=== PATIENT | female | born 1975 | race Caucasian/White ===

== ENCOUNTER 2017-05-09 05:02 | Observation (INO) | payer MEDICAID ==
[~2017-05-09] VITALS: Ht 154.9 cm; Wt 89.0 kg
[~2017-05-09 05:02] MED LIST: PREN1TAB60 PO
[2017-05-09 05:25] LABS: DAU SCREEN DISCLAIMER
[2017-05-09] MEDS ORDERED: ONDANSETRON 2MG/ML, 2ML ONE ×2 (05:56→12:35)
[2017-05-09] MEDS: ONDANSETRON 2MG/ML, 2ML IVPush PRN ×2 (05:59→12:37)
[2017-05-09] MEDS ORDERED: LACTATED RINGERS 1,000 ML IVBOLUS ONE (06:00)
[2017-05-09 06:30] LABS: BLOOD UREA NITROGEN 8 mg/dL (7-18)
[2017-05-09] MEDS: D5%-LACTATED RINGERS 1,000 ML IV SCH ×2 (06:40→12:00)
[2017-05-09] MEDS ORDERED: DIPHENHYDRAMINE 50 MG/ML, 1ML ONE (06:50)
[2017-05-09] MEDS ORDERED: DIPHENHYDRAMINE 50 MG/ML, 1ML IVPush ONE (07:00)
[2017-05-09] MEDS: POTASSIUM CHLORIDE 40 MEQ in LACTATED RINGERS 1,000 ML IV SCH ×2 (07:16→11:05)
[2017-05-09] MEDS ORDERED: FENTANYL PF 100 MCG/2ML ONE (10:18)
[2017-05-09] MEDS ORDERED: FENTANYL PF 100 MCG/2ML IVPush PRN (10:30)
[2017-05-09 10:59] LABS: ASPARTATE AMINO TRANSFERASE 29 U/L (15-37); BLOOD UREA NITROGEN 6 mg/dL (7-18)
[2017-05-09] MEDS ORDERED: POTASSIUM CHLORIDE 40 MEQ in LACTATED RINGERS 1,000 ML IV ONE (11:44)
[2017-05-09] MEDS ORDERED: PROMETHAZINE 25 MG/ML, 1ML IM ONE (15:30)
[2017-05-09 15:56] LABS: BLOOD UREA NITROGEN 5 mg/dL (7-18)
[2017-05-09 16:00] LABS: ASPARTATE AMINO TRANSFERASE 30 U/L (15-37)
[2017-05-09] MEDS ORDERED: CALCIUM CARBONATE 500 MG TAB.CHEW ONE (17:46)
[2017-05-09] MEDS ORDERED: HYDROcodone/APAP 10/325 MG TABLET PO PRN (18:00)
[2017-05-09] MEDS ORDERED: CALCIUM CARBONATE 500 MG TAB.CHEW PO PRN (18:00)
== END 2017-05-09 18:05 | disposition home or self-care (01) ==
LOC: LDOP 05:02 → LDIP 07:00
PROVIDERS: ADMIT Obstetrics & Gynecology; ATTEND Obstetrics & Gynecology
DX: O21.2 Late vomiting of pregnancy (principal); O99.283 Endocrine, nutritional and metabolic diseases complicating pregnancy, third trimester; E86.0 Dehydration; E87.6 Hypokalemia; O99.323 Drug use complicating pregnancy, third trimester; F12.90 Cannabis use, unspecified, uncomplicated; O99.513 Diseases of the respiratory system complicating pregnancy, third trimester; J45.909 Unspecified asthma, uncomplicated; O99.353 Diseases of the nervous system complicating pregnancy, third trimester; G47.33 Obstructive sleep apnea (adult) (pediatric); Z3A.36 36 weeks gestation of pregnancy
CPT/HCPCS: 36415; 59025; 80048; 80053; 80307; 81001; 82009; 85025; 87081; 87086; 96361; 96365; 96366; 96372; 96375; 96376; G0378; J1200; J2405; J2550; J3010; J3480; J7120; 96360; 96374; 99201; G0463; J7121

== ENCOUNTER 2017-05-11 16:19 | Inpatient (IN) | payer MEDICAID ==
[~2017-05-11] VITALS: Ht 154.9 cm; Wt 90.0 kg
[2017-05-11 16:50] LABS: DAU SCREEN DISCLAIMER
[2017-05-11] MEDS ORDERED: ONDANSETRON 2MG/ML, 2ML ONE (17:09)
[2017-05-11] MEDS ORDERED: PROMETHAZINE 25 MG/ML, 1ML ONE (17:09)
[2017-05-11 17:28] LABS: ASPARTATE AMINO TRANSFERASE 146 U/L (15-37); BLOOD UREA NITROGEN 3 mg/dL (7-18)
[2017-05-11] MEDS ORDERED: LACTATED RINGERS 1,000 ML IVBOLUS ONE (17:30)
[2017-05-11] MEDS ORDERED: ONDANSETRON 2MG/ML, 2ML IVPush ONE (17:30)
[2017-05-11] MEDS ORDERED: PROMETHAZINE 25 MG/ML, 1ML IM ONE (17:30)
[2017-05-11 17:37] LABS: DIFF TOTAL CELLS COUNTED 100 CELL DIFF
[2017-05-11 17:38] LABS: VERIFY COUNTS? YES
[2017-05-11 17:44] VITALS: BP 150/76
[2017-05-11] MEDS ORDERED: FAMOTIDINE 20 MG/2 ML IVPush ONE (18:00)
[2017-05-11] MEDS ORDERED: DIPH25TA65 PO (18:23)
[2017-05-11] MEDS ORDERED: ONDA4TAB10 PO (18:23)
[2017-05-11] MEDS ORDERED: PROM25TA10 PO (18:29)
[2017-05-11] MEDS ORDERED: ALBU18HF INH (18:30)
[2017-05-11] MEDS ORDERED: FAMOTIDINE 20 MG/2 ML ONE (18:40)
[2017-05-11] MEDS ORDERED: MAALOX/HYOSCYAMINE/LIDOCAINE 45 ML BTL PO ONE (19:30)
[2017-05-11] MEDS: NS + 40MEQ KCL 1,000 ML IV SCH (20:09)
[2017-05-11] MEDS ORDERED: hydrOXyzine 50MG TABLET PO ONE (20:30)
[2017-05-11] MEDS ORDERED: OXYTOCIN 30U/ 0.9% NaCL 500ML 500 ML ONE (23:27)
[2017-05-11] MEDS ORDERED: MISOPROSTOL 25 MCG TABLET ONE (23:27)
[2017-05-12] MEDS ORDERED: OXYTOCIN 30U/ 0.9% NaCL 500ML 500 ML IV PRN ×2 (00:01→13:28)
[2017-05-12] MEDS ORDERED: OXYTOCIN 30U/ 0.9% NaCL 500ML 500 ML IV ONE (00:01)
[2017-05-12] MEDS ORDERED: LACTATED RINGERS 1,000 ML IV SCH ×2 (00:01→07:25)
[2017-05-12] MEDS ORDERED: D5%-LACTATED RINGERS 1,000 ML IV SCH (00:01)
[2017-05-12] MEDS ORDERED: TERBUTALINE 1 MG/ML, 1ML IVPush PRN (00:30)
[2017-05-12] MEDS ORDERED: MISOPROSTOL 25 MCG TABLET VG PRN (00:30)
[2017-05-12] MEDS ORDERED: CALCIUM CARBONATE 500 MG TAB.CHEW PO PRN ×2 (00:30→21:30)
[2017-05-12] MEDS ORDERED: FENTANYL PF 100 MCG/2ML IV PRN (00:30)
[2017-05-12] MEDS ORDERED: ONDANSETRON 2MG/ML, 2ML IVPush PRN (00:30)
[2017-05-12] MEDS ORDERED: FENTANYL/BUPIV./NS/PF 250 ML EPIDCONT ONE ×2 (01:41→14:51)
[2017-05-12] MEDS ORDERED: LIDOCAINE/PF 1.5%-EPI 1:200K, 30ML ONE (01:41)
[2017-05-12] MEDS ORDERED: NEWBORN KIT ONE (03:18)
[2017-05-12] MEDS ORDERED: ONDANSETRON 2MG/ML, 2ML ONE (06:35)
[2017-05-12] MEDS ORDERED: FENTANYL/BUPIV./NS/PF 250 ML EPIDCONT SCH (07:25)
[2017-05-12] MEDS ORDERED: LACTATED RINGERS 1,000 ML IVBOLUS PRN (07:30)
[2017-05-12] MEDS ORDERED: NALOXONE 0.4 MG/ML, 1ML IVPush PRN (07:30)
[2017-05-12] MEDS ORDERED: EPHEDRINE 50 MG/ML, 1ML IVPush PRN (07:30)
[2017-05-12] MEDS: NS + 40MEQ KCL 1,000 ML IV SCH (09:00)
[2017-05-12] MEDS ORDERED: BUPIVACAINE 0.25% ONE (09:49)
[2017-05-12] MEDS ORDERED: FENTANYL PF 100 MCG/2ML ONE ×4 (11:43→21:09)
[2017-05-12] MEDS ORDERED: AMPICILLIN 2 GM in SODIUM CHLORIDE 0.9% 100 ML IVPB STA (13:30)
[2017-05-12] MEDS ORDERED: ACETAMINOPHEN 325 MG TABLET ONE (14:36)
[2017-05-12] MEDS ORDERED: MISOPROSTOL 200 MCG TABLET ONE (14:36)
[2017-05-12] MEDS ORDERED: LIDOCAINE 1%, 20ML ONE ×2 (14:36→20:26)
[2017-05-12] MEDS: ACETAMINOPHEN 325 MG TABLET PO PRN (14:38)
[2017-05-12 16:50] LABS: ASPARTATE AMINO TRANSFERASE 96 U/L (15-37); BLOOD UREA NITROGEN 5 mg/dL (7-18)
[2017-05-12] MEDS ORDERED: AMPICILLIN 1 GM in SODIUM CHLORIDE 0.9% 50 ML IVPB SCH (17:30)
[2017-05-12] MEDS ORDERED: MAGNESIUM SULF. PMX 20GM/500ML 500 ML IV SCH (18:47)
[2017-05-12] MEDS ORDERED: MAGNESIUM SULF. PMX 20GM/500ML 500 ML IV ONE (18:51)
[2017-05-12] MEDS ORDERED: MAGNESIUM SULFATE PMX 4GM/100M 100 ML IVPB ONE (19:00)
[2017-05-12] MEDS: FENTANYL PF 100 MCG/2ML IVPush PRN ×2 (20:18→21:05)
[2017-05-12] MEDS ORDERED: OXYTOCIN 30U/ 0.9% NaCL 500ML 500 ML IV SCH (21:28)
[2017-05-12] MEDS ORDERED: MAGNESIUM SULF. PMX 20GM/500ML 500 ML IV PRN (21:28)
[2017-05-12] MEDS ORDERED: DOCUSATE 100 MG CAPSULE PO PRN (21:30)
[2017-05-12] MEDS ORDERED: MISOPROSTOL 200 MCG TABLET PR PRN (21:30)
[2017-05-12] MEDS ORDERED: HYDROcodone/APAP 5/325 TABLET PO PRN (21:30)
[2017-05-12] MEDS ORDERED: OXYTOCIN 30U/ 0.9% NaCL 500ML 500 ML ONE (21:33)
[2017-05-13] MEDS ORDERED: IBUPROFEN 600 MG TABLET ONE (01:42)
[2017-05-13] MEDS ORDERED: ACETAMINOPHEN 325 MG TABLET ONE ×5 (01:49→22:57)
[2017-05-13] MEDS: ACETAMINOPHEN 325 MG TABLET PO PRN ×5 (01:52→23:00)
[2017-05-13] MEDS ORDERED: OXYTOCIN 30U/ 0.9% NaCL 500ML 500 ML ONE (03:03)
[2017-05-13] MEDS ORDERED: MAGNESIUM SULF. PMX 20GM/500ML 500 ML IV ONE ×2 (03:03→13:19)
[2017-05-13] MEDS: MAGNESIUM SULF. PMX 20GM/500ML 500 ML IV SCH ×2 (03:12→13:24)
[2017-05-13 07:10] VITALS: BP 152/103
[2017-05-13 07:24] LABS: ASPARTATE AMINO TRANSFERASE 71 U/L (15-37); BLOOD UREA NITROGEN 5 mg/dL (7-18)
[2017-05-13 07:45] VITALS: BP 156/96
[2017-05-13] MEDS ORDERED: ONDANSETRON 2MG/ML, 2ML ONE ×2 (08:14→16:09)
[2017-05-13] MEDS: ONDANSETRON 2MG/ML, 2ML IV PRN ×2 (08:18→16:11)
[2017-05-13 08:38] VITALS: BP_SYST 144; BP_SYST 156; BP_DIAS 96; BP_DIAS 97
[2017-05-13] MEDS ORDERED: FAMOTIDINE 20 MG TABLET PO ONE (08:40)
[2017-05-13] MEDS ORDERED: LABETALOL 5MG/ML, 20ML ONE (08:57)
[2017-05-13 08:59] VITALS: BP 175/106
[2017-05-13] MEDS ORDERED: PRENATAL VIT/IRON/FA 1 EACH TABLET PO SCH (09:00)
[2017-05-13] MEDS ORDERED: LABETALOL 5MG/ML, 20ML IVPush PRN ×2 (09:00→10:00)
[2017-05-13] MEDS ORDERED: LABETALOL 200 MG TABLET ONE (15:20)
[2017-05-13] MEDS: LABETALOL 200 MG TABLET PO SCH (15:22)
[2017-05-13] MEDS ORDERED: POTASSIUM CHLORIDE 20 MEQ TAB.ER.PRT PO ONE (19:30)
[2017-05-13] MEDS ORDERED: FLUCONAZOLE 200 MG TABLET PO ONE (22:00)
[2017-05-13] MEDS ORDERED: MAALOX/HYOSCYAMINE/LIDOCAINE 45 ML BTL PO ONE (22:00)
[2017-05-14 01:00] VITALS: BP 136/87
[2017-05-14 03:51] LABS: BLOOD UREA NITROGEN 9 mg/dL (7-18)
[2017-05-14 03:55] LABS: ASPARTATE AMINO TRANSFERASE 46 U/L (15-37)
[2017-05-14 06:00] VITALS: BP 129/85
[2017-05-14] MEDS: ACETAMINOPHEN 325 MG TABLET PO PRN (06:03)
[2017-05-14 07:30] VITALS: BP 127/81
[2017-05-14] MEDS: LABETALOL 200 MG TABLET PO SCH (09:22)
[2017-05-14 12:00] VITALS: BP 131/83
[2017-05-14] MEDS ORDERED: POTASSIUM CHLORIDE 20 MEQ TAB.ER.PRT PO SCH (17:00)
[2017-05-14] MEDS ORDERED: FLUCONAZOLE 100 MG TABLET PO SCH (22:00)
== END 2017-05-14 13:10 | disposition home or self-care (01) | DRG 774 ==
LOC: LDOP 16:19 → LDIP 17:44 → 2NE 05-13 23:18 → 2NW 05-14 08:29
PROVIDERS: ADMIT Obstetrics & Gynecology; ATTEND Obstetrics & Gynecology
PROC: 10E0XZZ Delivery of Products of Conception, External Approach (ICD-10-PCS; principal; 2017-05-12)
PROC: 3E0P7GC Introduction of Other Therapeutic Substance into Female Reproductive, Via Natural or Artificial Opening (ICD-10-PCS; 2017-05-12)
PROC: 0U7C7ZZ Dilation of Cervix, Via Natural or Artificial Opening (ICD-10-PCS; 2017-05-12)
PROC: 10907ZC Drainage of Amniotic Fluid, Therapeutic from Products of Conception, Via Natural or Artificial Opening (ICD-10-PCS; 2017-05-12)
PROC: 3E0R3CZ (ICD-10-PCS; 2017-05-12)
PROC: 00HU33Z Insertion of Infusion Device into Spinal Canal, Percutaneous Approach (ICD-10-PCS; 2017-05-12)
DX: O14.14 Severe pre-eclampsia complicating childbirth (principal); O98.82 Other maternal infectious and parasitic diseases complicating childbirth; O99.284 Endocrine, nutritional and metabolic diseases complicating childbirth; E87.6 Hypokalemia; O99.324 Drug use complicating childbirth; O69.81X0 Labor and delivery complicated by cord around neck, without compression, not applicable or unspecified; F12.90 Cannabis use, unspecified, uncomplicated; L29.9 Pruritus, unspecified; R74.0 Nonspecific elevation of levels of transaminase and lactic acid dehydrogenase [LDH]; B37.9 Candidiasis, unspecified; O99.72 Diseases of the skin and subcutaneous tissue complicating childbirth; J45.909 Unspecified asthma, uncomplicated; O99.52 Diseases of the respiratory system complicating childbirth; Z3A.36 36 weeks gestation of pregnancy; Z37.0 Single live birth
CPT/HCPCS: 36415; 80053; 80307; 81001; 82150; 82248; 82570; 82803; 83690; 83735; 84132; 84156; 84450; 84460; 84550; 85025; 86704; 86706; 86708; 86803; 86850; 86900; 87340; 93005; J2405; J2550; J3010; J2590; J3475; J3480; J7120; S0028

== ENCOUNTER 2019-11-08 17:05 | Emergency (ER) | payer MEDICAID ==
[~2019-11-08 17:05] MED LIST changes: +ALBU18HF INH; +DIPH25TA65 PO; +ONDA4TAB10 PO; +PROM25TA10 PO
--- NOTE | 2019-11-08 17:40 | NUR ---
[id number]
--- NOTE | 2019-11-08 18:06 | NUR ---
NILX2
--- NOTE | 2019-11-08 20:29 | NUR ---
PATIENT NIL X3, ASSUMED TO HAVE LEFT AT THIS TIME
== END 2019-11-08 20:31 | disposition left against medical advice (07) ==
LOC: ED 20:25
DX: R10.2 Pelvic and perineal pain (principal); Z53.21 Procedure and treatment not carried out due to patient leaving prior to being seen by health care provider

== ENCOUNTER 2020-04-26 09:40 | Emergency (ER) | payer MEDICAID ==
--- NOTE | 2020-04-26 10:08 | NUR ---
NO ANSWER FROM TRIAGE. PT LEFT PER SECURITY AND DOOR SCREENER
--- NOTE | 2020-04-26 10:19 | NUR ---
PT FOUND IN [facility]. VERBALIZES DESIRE TO GO HOME AND NOT BE SEEN. HSBAND COMING TO STATEMENT PROCESSOR
== END 2020-04-26 10:21 | disposition left against medical advice (07) ==
LOC: ED 10:15
DX: R11.10 Vomiting, unspecified (principal); Z53.21 Procedure and treatment not carried out due to patient leaving prior to being seen by health care provider

== ENCOUNTER 2020-04-27 10:21 | Inpatient (IN) | payer MEDICAID ==
[~2020-04-27] VITALS: Ht 172.7 cm; Wt 82.9 kg
[2020-04-27] MEDS ORDERED: PROMETHAZINE 25 MG/ML, 1ML ONE (10:29)
[2020-04-27] MEDS ORDERED: SODIUM CHLORIDE FLUSH 10ML SYR IVF ONE (10:30)
[2020-04-27] MEDS ORDERED: FAMOTIDINE 20 MG/2 ML IVPush ONE (10:30)
[2020-04-27] MEDS ORDERED: SODIUM CHLORIDE 0.9% 1,000ML IVBOLUS ONE ×2 (10:30→12:00)
[2020-04-27] MEDS ORDERED: PROMETHAZINE 25 MG/ML, 1ML IM ONE (10:30)
[2020-04-27] MEDS ORDERED: FAMOTIDINE 20 MG/2 ML ONE (10:35)
--- NOTE | 2020-04-27 10:46 | NUR ---
PT BIB EMS FOR ABD PAIN, NVD X 2 DAYS. PT STATES SHE WAS HERE YESTERDAY AND WAS NEVER SEEN. SHE LEFT WHILE WAITING IN THE LOBBY. EMS WENT TO HER HOUSE THIS MORNING AT 0130 AND GAVE HER ZOFRAN BUT NEVER TOOK HER TO HOSPITAL. SHE CALLED 911 AGAIN THIS MORNING AROUND 0945 AND WAS BROUGHT IN. PT HAS BEEN VOMITTING AND DRY HEAVING IN A EMESIS BAG. PT GIVEN 4MG ZOFRAN NEWSPAPER MANAGER. PT MEDICATED HERE PER DEC. 3 WARM BLANKETS PROVIDED.
[2020-04-27 11:06] LABS: BASOPHILS # (AUTO) 0.07 x10^3/uL (0-0.1); BASOPHILS % (AUTO) 0 % (0-1); EOSINOPHILS # (AUTO) 0.04 x10^3/uL (0-0.4); EOSINOPHILS % (AUTO) 0 % (1-7); LYMPHOCYTES # (AUTO) 1.98 x10^3/uL (1-3.4); LYMPHOCYTES % (AUTO) 11 % (22-44); MD NO; MEAN CORPUSCULAR HEMOGLOBIN 30.9 pg (27.0-34.8); MEAN CORPUSCULAR HGB CONC 33.8 g/dL (32.4-35.8); MEAN CORPUSCULAR VOLUME 91.4 fL (80-100); MEAN PLATELET VOLUME 8.7 fL (7.4-10.4); MONOCYTES # (AUTO) 0.72 x10^3/uL (0.2-0.8); MONOCYTES % (AUTO) 4 % (2-9); NEUTROPHILS # (AUTO) 15.04 x10^3/uL (1.8-6.8); NEUTROPHILS % (AUTO) 84 % (42-75); PLATELET COUNT 330 x10^3/uL (130-400); RED BLOOD COUNT 4.38 x10^6/uL (3.82-5.3); RED CELL DISTRIBUTION WIDTH 13.6 % (9.6-15.2)
[2020-04-27 11:16] LABS: ALANINE AMINOTRANSFERASE 28 U/L (12-78); ANION GAP 11 mmol/L (5-15); CALCIUM 9.1 mg/dL (8.5-10.1); CHLORIDE 109 mmol/L (98-107); CREATININE 0.72 mg/dL (0.55-1.02)
[2020-04-27 11:21] LABS: ALKALINE PHOSPHATASE 64 U/L (45-117); BILIRUBIN,TOTAL 0.8 mg/dL (0.2-1.0); TOTAL PROTEIN 7.2 g/dL (6.4-8.2)
--- NOTE | 2020-04-27 11:31 | NUR ---
PT RESTING IN GURNEY. EYES CLOSED. EQUAL CHEST RISE AND FALL WITH EACH BREATH.
[2020-04-27] MEDS ORDERED: OMNIPAQUE 350 MG/ML, 100ML BOTTLE ONE (12:28)
[2020-04-27 12:34] LABS: MICROSCOPIC INDICATED
[2020-04-27] MEDS ORDERED: AMPICILLIN/SULBACTAM 3 GM in SODIUM CHLORIDE 0.9% 100 ML IV ONE (13:00)
[2020-04-27] MEDS ORDERED: METRONIDAZOLE PMX 500MG/100ML 100 ML IV ONE ×2 (13:30→18:00)
[2020-04-27] MEDS ORDERED: HYDROmorphone 1 MG/ML, 1ML INJ IV ONE (13:30)
[2020-04-27] MEDS ORDERED: hydrALAzine 20 MG/ML, 1ML IVPush PRN (15:30)
[2020-04-27] MEDS ORDERED: OXYcodone IR 5MG TABLET PO PRN (15:30)
[2020-04-27] MEDS ORDERED: LABETALOL 5MG/ML, 20ML IVPush PRN (15:30)
[2020-04-27] MEDS ORDERED: ACETAMINOPHEN 325 MG TABLET PO PRN (15:30)
[2020-04-27] MEDS: PROMETHAZINE 25 MG/ML, 1ML IM PRN ×2 (15:45→23:50)
[2020-04-27] MEDS: morphine SULFATE 10 MG/ML, 1ML IVPush PRN ×2 (15:46→23:59)
[2020-04-27] MEDS: SODIUM CHLORIDE 0.9% 1,000 ML IV SCH (15:47)
[2020-04-27 16:00] VITALS: BP 135/84
[2020-04-27] MEDS ORDERED: POTASSIUM CHLORIDE 40 MEQ in SODIUM CHLORIDE 0.9% 500 ML IV ONE (16:00)
[2020-04-27] MEDS: POTASSIUM CHLORIDE 20 MEQ TAB.ER.PRT PO SCH (17:00)
[2020-04-27] MEDS: PIPERACILLIN/TAZO/PMX 3.375GM 50 ML IV SCH ×2 (17:25→23:30)
[2020-04-27 20:04] VITALS: BP 119/74
[2020-04-27 21:06] LABS: INTERNATIONAL NORMALIZED RATIO 1.01 (0.93-1.1); PROTHROMBIN TIME 10.7 Seconds (9.6-11.5)
[2020-04-27 21:08] LABS: ANION GAP 9 mmol/L (5-15); CALCIUM 7.8 mg/dL (8.5-10.1); CHLORIDE 112 mmol/L (98-107); CREATININE 0.66 mg/dL (0.55-1.02)
[2020-04-28 00:51] LABS: CLOSTRIDIUM DIFFICILE ANTIGEN NEGATIVE; CLOSTRIDIUM DIFFICILE TOXIN NEGATIVE (Negative)
[2020-04-28 02:22] VITALS: BP 144/91
[2020-04-28] MEDS: PROMETHAZINE 25 MG/ML, 1ML IM PRN ×4 (03:07→21:54)
[2020-04-28] MEDS: morphine SULFATE 10 MG/ML, 1ML IVPush PRN ×4 (03:08→17:21)
[2020-04-28 04:40] LABS: CALCIUM 7.7 mg/dL (8.5-10.1); CHLORIDE 113 mmol/L (98-107); MEAN CORPUSCULAR HEMOGLOBIN 30.1 pg (27.0-34.8); MEAN CORPUSCULAR HGB CONC 32.1 g/dL (32.4-35.8); MEAN CORPUSCULAR VOLUME 93.7 fL (80-100); MEAN PLATELET VOLUME 9.4 fL (7.4-10.4); PLATELET COUNT 252 x10^3/uL (130-400); RED BLOOD COUNT 3.69 x10^6/uL (3.82-5.3); RED CELL DISTRIBUTION WIDTH 13.8 % (9.6-15.2)
[2020-04-28 04:47] LABS: ALANINE AMINOTRANSFERASE 28 U/L (12-78); ALBUMIN 3.3 g/dL (3.4-5.0); ALKALINE PHOSPHATASE 53 U/L (45-117); ANION GAP 10 mmol/L (5-15); BILIRUBIN,TOTAL 0.7 mg/dL (0.2-1.0); CREATININE 0.56 mg/dL (0.55-1.02); TOTAL PROTEIN 6.1 g/dL (6.4-8.2)
[2020-04-28 05:08] LABS: BASOPHILS # (AUTO) 0.01 x10^3/uL (0-0.1); BASOPHILS % (AUTO) 0 % (0-1); EOSINOPHILS % (AUTO) 0 % (1-7); LYMPHOCYTES # (AUTO) 1.03 x10^3/uL (1-3.4); LYMPHOCYTES % (AUTO) 7 % (22-44); MONOCYTES # (AUTO) 0.52 x10^3/uL (0.2-0.8); MONOCYTES % (AUTO) 3 % (2-9); NEUTROPHILS # (AUTO) 14.34 x10^3/uL (1.8-6.8); NEUTROPHILS % (AUTO) 90 % (42-75)
[2020-04-28 05:12] LABS: MD NO
[2020-04-28] MEDS: PIPERACILLIN/TAZO/PMX 3.375GM 50 ML IV SCH ×4 (05:44→23:56)
[2020-04-28] MEDS: SODIUM CHLORIDE 0.9% 1,000 ML IV SCH ×2 (05:44→19:50)
[2020-04-28 07:10] VITALS: BP 116/74
[2020-04-28] MEDS: CALCIUM CARBONATE 500 MG TABLET PO SCH ×2 (09:02→21:41)
[2020-04-28] MEDS: POTASSIUM CHLORIDE 20 MEQ TAB.ER.PRT PO SCH ×2 (09:02→17:11)
[2020-04-28] MEDS ORDERED: MORPHINE SULFATE 4 MG/ML, 1ML ONE (09:05)
[2020-04-28] MEDS ORDERED: POTASSIUM CHLORIDE 40 MEQ in SODIUM CHLORIDE 0.9% 500 ML IV ONE (10:00)
[2020-04-28] MEDS: FAMOTIDINE 10 MG TAB PO SCH ×2 (11:31→21:41)
[2020-04-28] MEDS: ONDANSETRON 2MG/ML, 2ML IVPush PRN ×2 (11:58→17:18)
[2020-04-28 14:08] VITALS: BP 154/94
[2020-04-28] MEDS: ENOXAPARIN 40 MG/0.4 ML SQ SCH (17:11)
[2020-04-28 19:58] VITALS: BP 124/74
[2020-04-29] MEDS: morphine SULFATE 10 MG/ML, 1ML IVPush PRN ×2 (00:18→03:54)
[2020-04-29] MEDS: ONDANSETRON 2MG/ML, 2ML IVPush PRN ×3 (00:19→23:50)
[2020-04-29 03:19] VITALS: BP 132/83
[2020-04-29] MEDS: SODIUM CHLORIDE 0.9% 1,000 ML IV SCH ×3 (03:48→23:57)
[2020-04-29] MEDS: PIPERACILLIN/TAZO/PMX 3.375GM 50 ML IV SCH ×4 (05:05→23:50)
[2020-04-29] MEDS: PROMETHAZINE 25 MG/ML, 1ML IM PRN (05:05)
[2020-04-29 06:14] LABS: BASOPHILS # (AUTO) 0.09 x10^3/uL (0-0.1); BASOPHILS % (AUTO) 1 % (0-1); EOSINOPHILS # (AUTO) 0.12 x10^3/uL (0-0.4); EOSINOPHILS % (AUTO) 1 % (1-7); LYMPHOCYTES # (AUTO) 3.26 x10^3/uL (1-3.4); LYMPHOCYTES % (AUTO) 32 % (22-44); MD NO; MEAN CORPUSCULAR HEMOGLOBIN 30.2 pg (27.0-34.8); MEAN CORPUSCULAR HGB CONC 32.4 g/dL (32.4-35.8); MEAN CORPUSCULAR VOLUME 93.2 fL (80-100); MEAN PLATELET VOLUME 8.6 fL (7.4-10.4); MONOCYTES # (AUTO) 0.58 x10^3/uL (0.2-0.8); MONOCYTES % (AUTO) 6 % (2-9); NEUTROPHILS # (AUTO) 6.14 x10^3/uL (1.8-6.8); NEUTROPHILS % (AUTO) 60 % (42-75); PLATELET COUNT 242 x10^3/uL (130-400); RED BLOOD COUNT 3.48 x10^6/uL (3.82-5.3)
[2020-04-29 06:20] LABS: ALANINE AMINOTRANSFERASE 24 U/L (12-78); ALBUMIN 2.8 g/dL (3.4-5.0); ANION GAP 5 mmol/L (5-15); CALCIUM 7.8 mg/dL (8.5-10.1); CHLORIDE 112 mmol/L (98-107); CREATININE 0.61 mg/dL (0.55-1.02)
[2020-04-29 06:22] LABS: ALKALINE PHOSPHATASE 45 U/L (45-117); BILIRUBIN,TOTAL 0.6 mg/dL (0.2-1.0); TOTAL PROTEIN 5.3 g/dL (6.4-8.2)
[2020-04-29 07:51] VITALS: BP 124/73
[2020-04-29] MEDS: FAMOTIDINE 10 MG TAB PO SCH ×2 (08:28→20:45)
[2020-04-29] MEDS: CALCIUM CARBONATE 500 MG TABLET PO SCH ×2 (08:28→20:45)
[2020-04-29] MEDS: POTASSIUM CHLORIDE 20 MEQ TAB.ER.PRT PO SCH ×2 (08:28→17:40)
[2020-04-29] MEDS: OXYcodone/APAP 5/325MG TABLET PO PRN ×3 (10:28→22:05)
[2020-04-29 15:30] VITALS: BP 123/76
[2020-04-29] MEDS: ENOXAPARIN 40 MG/0.4 ML SQ SCH (17:40)
[2020-04-29 19:47] VITALS: BP 138/87
[2020-04-30 02:47] VITALS: BP 148/87
[2020-04-30] MEDS: PIPERACILLIN/TAZO/PMX 3.375GM 50 ML IV SCH (05:11)
[2020-04-30 05:38] LABS: ALBUMIN 2.9 g/dL (3.4-5.0); ANION GAP 4 mmol/L (5-15); CHLORIDE 107 mmol/L (98-107)
[2020-04-30 05:42] LABS: ALANINE AMINOTRANSFERASE 28 U/L (12-78); ALKALINE PHOSPHATASE 48 U/L (45-117); BILIRUBIN,TOTAL 0.4 mg/dL (0.2-1.0); CREATININE 0.63 mg/dL (0.55-1.02); TOTAL PROTEIN 5.6 g/dL (6.4-8.2)
[2020-04-30 05:45] LABS: MEAN CORPUSCULAR HEMOGLOBIN 30.5 pg (27.0-34.8); MEAN CORPUSCULAR HGB CONC 32.9 g/dL (32.4-35.8); MEAN CORPUSCULAR VOLUME 92.5 fL (80-100); MEAN PLATELET VOLUME 9.3 fL (7.4-10.4); PLATELET COUNT 269 x10^3/uL (130-400); RED BLOOD COUNT 4.12 x10^6/uL (3.82-5.3); RED CELL DISTRIBUTION WIDTH 14.1 % (9.6-15.2)
[2020-04-30 06:30] LABS: BASOPHILS # (AUTO) 0.05 x10^3/uL (0-0.1); BASOPHILS % (AUTO) 1 % (0-1); EOSINOPHILS # (AUTO) 0.36 x10^3/uL (0-0.4); EOSINOPHILS % (AUTO) 4 % (1-7); LYMPHOCYTES # (AUTO) 3.58 x10^3/uL (1-3.4); LYMPHOCYTES % (AUTO) 39 % (22-44); MD SCAN; MONOCYTES # (AUTO) 0.42 x10^3/uL (0.2-0.8); MONOCYTES % (AUTO) 5 % (2-9); NEUTROPHILS # (AUTO) 4.84 x10^3/uL (1.8-6.8); NEUTROPHILS % (AUTO) 52 % (42-75)
[2020-04-30] MEDS: POTASSIUM CHLORIDE 20 MEQ TAB.ER.PRT PO SCH (08:13)
[2020-04-30] MEDS: CALCIUM CARBONATE 500 MG TABLET PO SCH (08:13)
[2020-04-30] MEDS: FAMOTIDINE 10 MG TAB PO SCH (08:13)
[2020-04-30 08:18] VITALS: BP 131/82
[2020-04-30] MEDS ORDERED: CEFDINIR 300 MG CAPSULE PO SCH (09:00)
[2020-04-30] MEDS ORDERED: metroNIDAZOLE 500 MG TABLET PO SCH (09:00)
[2020-04-30] MEDS ORDERED: CEFD300C37 PO (11:39)
[2020-04-30] MEDS ORDERED: ONDA4TAB7 PO (11:39)
[2020-04-30] MEDS ORDERED: ACET325T26 PO (11:39)
[2020-04-30] MEDS ORDERED: METR500T PO (11:39)
[2020-04-30 13:25] VITALS: BP 123/73
== END 2020-04-30 14:16 | disposition home or self-care (01) | DRG 392 ==
LOC: ED 14:07 → 4NE 14:19 → ED 14:23 → EDIP 14:24 → 4NE 14:37 → 3WST 04-28 18:53 → DCLOUNGE 04-30 13:57
PROVIDERS: ADMIT Hospitalist; ATTEND Hospitalist
DX: A09 Infectious gastroenteritis and colitis, unspecified (principal); E87.2 Acidosis; E87.6 Hypokalemia; F12.90 Cannabis use, unspecified, uncomplicated; N83.201 Unspecified ovarian cyst, right side; Z87.891 Personal history of nicotine dependence; Z80.8 Family history of malignant neoplasm of other organs or systems
CPT/HCPCS: 36415; 74022; 84145; 87046; 89055; 96361; 96372; 96374; 99285; J3490; 74177; 80048; 80053; 81001; 83605; 83690; 83735; 84703; 85025; 85610; 85730; 87040; 87086; 87324; 93005; G0378; J0295; J1650; J2405; J2543; J2550; J3480; Q9967; J2270; J7030; J7040

== ENCOUNTER 2021-02-19 10:41 | Emergency (ER) | payer MEDICAID ==
[~2021-02-19] VITALS: Ht 154.9 cm; Wt 72.7 kg
[~2021-02-19 10:41] MED LIST changes: +ACET325T26 PO; +CEFD300C37 PO; +METR500T PO; +ONDA4TAB7 PO
--- NOTE | 2021-02-19 10:48 | NUR ---
bib ems for c/o lower back pain started yesterday. pt states intermittent back pain started 3.5 yrs ago after pt got epidural. pt states decreased mobility. is able to kneel to stand. states "it feels like my spine in caving into my tailbone". 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 denies injury/trauma. denies numbness/tingling. denies any incontinence. pt resting on gurney. nadn. monitors applied. vss. warm blanket provided.
--- NOTE | 2021-02-19 11:39 | NUR ---
pt resting on [facility]. nasn. dawson.
--- NOTE | 2021-02-19 11:41 | NUR ---
erp dr. duque at bedside for eval.
[2021-02-19] MEDS ORDERED: MORPHINE SULFATE 4 MG/ML, 1ML ONE (11:50)
[2021-02-19] MEDS ORDERED: KETOROLAC 30 MG/1 ML ONE (11:50)
[2021-02-19] MEDS ORDERED: ONDANSETRON 2MG/ML, 2ML ONE (11:51)
--- NOTE | 2021-02-19 11:59 | NUR ---
pt states immediate relief of pain from 10 to 310.
[2021-02-19] MEDS ORDERED: ONDANSETRON 2MG/ML, 2ML IVPush ONE (12:00)
[2021-02-19] MEDS ORDERED: MORPHINE SULFATE 4 MG/ML, 1ML IVPush PRN (12:00)
[2021-02-19] MEDS ORDERED: KETOROLAC 30 MG/1 ML IVPush ONE (12:00)
--- NOTE | 2021-02-19 12:50 | NUR ---
pt chart reviewed and placed for recheck.
--- NOTE | 2021-02-19 12:51 | NUR ---
pt resting on gurney. nadn. dawson.
[2021-02-19 13:53] VITALS: BP 108/63
--- NOTE | 2021-02-19 13:54 | NUR ---
pt resting on gurney. nadn. dawson.
== END 2021-02-19 14:32 | disposition home or self-care (01) ==
LOC: ED 13:21
DX: S39.012A Strain of muscle, fascia and tendon of lower back, initial encounter (principal); S33.5XXA Sprain of ligaments of lumbar spine, initial encounter; J45.909 Unspecified asthma, uncomplicated; X58.XXXA Exposure to other specified factors, initial encounter; Y93.89 Activity, other specified; Y92.89 Other specified places as the place of occurrence of the external cause; Y99.8 Other external cause status
CPT/HCPCS: 72110; 96374; 96375; 99284; J1885; J2270; J2405; J7512